=== PATIENT | female | born 1985 | race Caucasian/White ===

== ENCOUNTER 2020-04-19 20:30 | Inpatient (IN) | payer BC ==
[2020-04-19] MEDS ORDERED: DEXTROSE 5%-LACTATED RINGERS 1,000 ML IV SCH (21:00)
[2020-04-19 22:13] VITALS: BMI 35.3
[2020-04-19] MEDS ORDERED: AMPICILLIN SODIUM 2 GM VIAL IVPB ONE (22:15)
[2020-04-19] MEDS ORDERED: AMPICILLIN SODIUM 2 GM VIAL ONE (22:18)
[2020-04-19 23:01] LABS: BASO % 0.2 % (0-2.0); EOS % 0.5 % (0-4.5); HEMATOCRIT 39.9 % (32.4-45.2); LYMPH % 18.8 % (8-40); MCH 33.4 pg (25.7-33.7); MCHC 35.2 g/dl (32.0-36.0); MEAN CELL VOLUME 95.1 fl (80-96); MEAN PLT VOLUME 6.5 fl (7.5-11.1); MONO % 4.2 % (3.8-10.2); NEUT % 76.3 % (42.8-82.8); PLATELET COUNT 207 K/MM3 (134-434); RBC 4.19 M/mm3 (3.60-5.2); RDW 12.6 % (11.6-15.6); WHITE BLOOD COUNT 11.4 K/mm3 (4.0-10.0)
--- NOTE | 2020-04-19 23:01 | PD.OB.PROG ---
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 Cardio/Vascular: Denies/None Pulmonary: Denies/None Gastrointestinal: Denies/None Hepatobiliary: Denies/None Renal/: Denies/None ...: 2 ...Para: 1 ...Term: 1 ...: 0 ...Spon : 0 ...Induced : 0 ...Living Children: 1 ...Multiple Gestation: 0 ...EDC by Sono: 04/17/20 Heme/Onc: Denies/None Infectious Disease: Denies/None Psych: Denies/None Musculoskeletal: Denies/None Rheumatology: Denies/None ENT: Denies/None Endocrine: Denies/None Dermatology: Denies/None - Past Surgical History Past Surgical History: No: None, AAA Repair, AICD, Amputation, Appendectomy, Arthrosocopy, AV Fistula/Graft, Bariatric Surgery, Breast Biopsy, Bypass, CABG, Carotid Endarterectomy, Cataract Removal, Cholecystectomy, Colectomy, Colonoscopy, Colostomy, Craniotomy, , Cystectomy, Hernia Repair, Hysterectomy, Ileal Conduit, Ileosotomy, Joint Replacement, Kidney Transplant, Laminectomy, Liver Transplant, Mastectomy, Nephrectomy, Oopherectomy, Orchiectomy, Permanent Pacemaker, Prostatectomy, Splenectomy, Stent, Thoracotomy, TURP, Tonsillectomy, Tubal Ligation, Upper Endoscopy, Valve Replacement, Vasectomy, Vein Stripping/Ligation - Advance Directives Advance Directives: Yes: Living Will - Smoking History Smoking history: Never smoked Have you smoked in the past 12 months: No - Alcohol/Substance Use Hx Alcohol Use: No History of Substance Use: reports: None - Social History Usual Living Arrangement: With Significant Other Do you think of yourself as: Straight/Heterosexual ADL: Independent History of Recent Travel: No Review of Systems - Review of Systems Constitutional: reports: No Symptoms Eyes: reports: No Symptoms HENT: reports: No Symptoms Neck: reports: No Symptoms Cardiovascular: reports: No Symptoms Respiratory: reports: No Symptoms Gastrointestinal: reports: No Symptoms Genitourinary: reports: No Symptoms Breasts: reports: No Symptoms Reported Musculoskeletal: reports: No Symptoms Integumentary: reports: No Symptoms Neurological: reports: No Symptoms Endocrine: reports: No Symptoms Hematology/Lymphatic: reports: No Symptoms Psychiatric: reports: No Symptoms Physical Exam - Obstetrical Vital Signs: Vital Signs Temperature 98.2 F 04/19/20 20:30 Pulse Rate 81 04/19/20 20:30 Respiratory Rate 20 04/19/20 20:30 Blood Pressure 117/71 04/19/20 20:30 O2 Sat by Pulse Oximetry (%) Constitutional: Yes: Well Nourished, No Distress, Calm Eyes: Yes: WNL, Conjunctiva Clear, EOM Intact HENT: Yes: WNL, Atraumatic, Normocephalic Neck: Yes: WNL, Supple, Trachea Midline Cardiovascular: Yes: WNL, Regular Rate and Rhythm Lungs: Clear to auscultation Breast(s): Yes: WNL - Abdominal Exam/OB Number of Fetuses: Single Presentation: Vertex Contractions: Yes Regularity: Regular Intensity: Moderate Monitor Mode: External Heart Rate (range): 150 Heart Rate Location: [facility] Category: I Accelerations: Uniform Decelerations: None - Vaginal Exam/OB Vaginal Exam Deferred: No Vaginal Bleeding: No Speculum Exam: No Dilatation (cm): 4 Effacement (%): 80 Amniotic Membrane Status: Intact Presentation: Vertex/Position Station: -1 - Physical Exam Musculoskeletal: Yes: WNL Extremities: Yes: WNL Integumentary: Yes: WNL ...Motor Strength: WNL Psychiatric: Yes: WNL, Alert, Oriented Assessment/Plan in labor, will admit,
[2020-04-19 23:13] LABS: INR 0.86 (0.83-1.09); PROTHROMBIN TIME (PATIENT) 10.1 SEC (9.7-13.0)
[2020-04-19] MEDS: OXYTOCIN 20 UNITS in 0.9% NS 20 UNIT/1,000 ML INFUS.BAG IV SCH (23:15)
[2020-04-19 23:16] LABS: ACTIVATED PTT 28.2 SECONDS (25.2-36.5)
[2020-04-19] MEDS ORDERED: OXYTOCIN 20 UNITS in 0.9% NS 20 UNIT/1,000 ML INFUS.BAG IV ONE (23:17)
[2020-04-19 23:25] LABS: BLOOD UREA NITROGEN 8.4 mg/dL (7-18); CALCIUM 9.2 mg/dL (8.5-10.1); CREATININE 0.5 mg/dL (0.55-1.3); POTASSIUM 3.5 mmol/L (3.5-5.1)
[2020-04-19] MEDS ORDERED: WITCH HAZEL 50% (TUCKS) 40 PAD/JAR PAD TP PRN (23:29)
[2020-04-19] MEDS ORDERED: BENZOCAINE 28 GM HEMORRHOIDAL OINTMENT TP PRN (23:29)
[2020-04-19] MEDS ORDERED: BISACODYL 10 MG SUPP.RECT RC PRN (23:29)
[2020-04-19] MEDS ORDERED: IBUPROFEN 600 MG TABLET (FP) PO PRN (23:29)
[2020-04-19] MEDS ORDERED: BENZOCAINE 20% 57 GM BOTTLE TP PRN (23:29)
[2020-04-19] MEDS ORDERED: METHYLERGONOVINE MALEATE 0.2 MG/1 ML AMP IM PRN (23:29)
[2020-04-19] MEDS ORDERED: ACETAMINOPHEN 325 MG TABLET (FP) PO PRN (23:29)
--- NOTE | 2020-04-19 23:37 | HP ---
Past Medical History - Primary Care Physician PCP:: charley - Admission Chief Complaint: 40 weeks, labor History of Present Illness: 34 yo f 40 weeks in labor, no bleeding, no rom , cx 8 cm 100 vx -1 mi, fhr cat 1, regular contraction History Source: Patient Limitations to Obtaining History: No Limitations - Past Medical History ...: 2 ...Para: 1 ...Term: 1 ...: 0 ...Spon : 0 ...Induced : 0 ...Living Children: 1 ...Multiple Gestation: 0 ...EDC by Nick: 04/17/20 - Past Surgical History Past Surgical History: No: None, AAA Repair, AICD, Amputation, Appendectomy, Arthrosocopy, AV Fistula/Graft, Bariatric Surgery, Breast Biopsy, Bypass, CABG, Carotid Endarterectomy, Cataract Removal, Cholecystectomy, Colectomy, Colonoscopy, Colostomy, Craniotomy, , Cystectomy, Hernia Repair, Hysterectomy, Ileal Conduit, Ileosotomy, Joint Replacement, Kidney Transplant, Laminectomy, Liver Transplant, Mastectomy, Nephrectomy, Oopherectomy, Orchiectomy, Permanent Pacemaker, Prostatectomy, Splenectomy, Stent, Thoracotomy, TURP, Tonsillectomy, Tubal Ligation, Upper Endoscopy, Valve Replacement, Vasectomy, Vein Stripping/Ligation Hx Myomectomy: No Hx Transabdominal Cerclage: No - Advance Directives Advance Directives: Yes: Living Will - Smoking History Smoking history: Never smoked Have you smoked in the past 12 months: No - Alcohol/Substance Use Hx Alcohol Use: No History of Substance Use: reports: None - Social History Usual Living Arrangement: Yes: With Spouse ADL: Independent History of Recent Travel: No Home Medications - Allergies Allergies/Adverse Reactions: Allergies Allergy/AdvReac Type Severity Reaction Status Date / Time No Known Allergies Allergy Verified 10/21/19 09:23 - Home Medications Home Medications: Ambulatory Orders Oseltamivir Phosphate [Tamiflu] 75 mg PO BID #10 capsule 10/21/19 Review of Systems - Review of Systems Constitutional: reports: No Symptoms Eyes: reports: No Symptoms HENT: reports: No Symptoms Neck: reports: No Symptoms Cardiovascular: reports: No Symptoms Respiratory: reports: No Symptoms Gastrointestinal: reports: No Symptoms Genitourinary: reports: No Symptoms Breasts: reports: No Symptoms Reported Musculoskeletal: reports: No Symptoms Integumentary: reports: No Symptoms Neurological: reports: No Symptoms Endocrine: reports: No Symptoms Hematology/Lymphatic: reports: No Symptoms Psychiatric: reports: No Symptoms Physical Exam - Maternity Vital Signs: Vital Signs Temperature 98.2 F 04/19/20 20:30 Pulse Rate 81 04/19/20 20:30 Respiratory Rate 04/19/20 20:30 Blood Pressure 117/71 04/19/20 20:30 O2 Sat by Pulse Oximetry (%) Constitutional: Yes: Well Nourished, No Distress, Calm Eyes: Yes: WNL, Conjunctiva Clear, EOM Intact HENT: Yes: WNL, Atraumatic, Normocephalic Neck: Yes: WNL, Supple, Trachea Midline Cardiovascular: Yes: WNL, Regular Rate and Rhythm Breast(s): Yes: WNL - Abdominal Exam/OB Fundal Height: 38 Number of Fetuses: Single Presentation: Vertex Contractions: Yes Regularity: Regular Intensity: Mod/Strong Monitor Mode: External Heart Rate Location: [facility] Category: I Accelerations: Non-Uniform - Vaginal Exam/OB Vaginal Bleeding: No Speculum Exam: No Dilatation (cm): 8 Effacement (%): 80 Amniotic Membrane Status: Intact Presentation: Vertex/Position Station: -1 - Physical Exam Musculoskeletal: Yes: WNL Extremities: Yes: WNL Edema: LLE: Trace, RLE: Trace Deep Tendon Reflex Grade: Normal +2 ...Motor Strength: WNL Psychiatric: Yes: WNL - Labs Lab Results: CBC, BMP 04/19/20 22:30 04/19/20 22:30 Hemorrhage Risk Assessment - Risk Factors Medium Risk Factors: Yes: None High Risk Factors: Yes: None Risk Score: 1 Risk Level: Medium Risk Problem List - Problems (1) 40 weeks gestation of Code(s): Z3A.40 - 40 WEEKS GESTATION OF (2) Labor established Code(s): OGI9398 - Assessment/Plan admit for vaginal delivery fh pain management
--- NOTE | 2020-04-19 23:39 | PN ---
Delivery - Delivery Vaginal Delivery: Spontaneous Type of Anesthesia: None Episiotomy/Laceration: None (cx full head delivered NATANAEL, no cord, ant,and post.shoulder with no difficulty, live baby girl 9/9,placenta complete, no laceration ,ebl 300cc , no complication, baby bonded with mom) Delivery, Single - Feeding Plan Initial Plan: Elected not to breastfeed exclusively throughout hospitalization
[2020-04-20 00:39] LABS: CORD BASE EXCESS -2.9 mmol/L (0-2); CORD HCO3 25.5 mmHg (20-29); CORD PCO2 60.5 mmHg (30-78); CORD pH 7.243 (7.14-7.44)
[2020-04-20 00:44] LABS: CORD BASE EXCESS -2.2 mmol/L (0-2); CORD HCO3 23.3 mmHg (20-29); CORD PCO2 42.5 mmHg (30-78); CORD pH 7.357 (7.14-7.44)
[2020-04-20] MEDS ORDERED: AMPICILLIN SODIUM 1 GM VIAL IVPB SCH (02:15)
[2020-04-20] MEDS: OXYTOCIN 20 UNITS in 0.9% NS 20 UNIT/1,000 ML INFUS.BAG IV SCH (02:30)
[2020-04-20] MEDS ORDERED: OXYTOCIN 20 UNITS in 0.9% NS 20 UNIT/1,000 ML INFUS.BAG IV ONE (02:34)
[2020-04-20] MEDS: FERROUS SO4 325 MG TABLET (FP) PO SCH ×2 (08:40→16:50)
[2020-04-20 08:43] LABS: BASO % 0.2 % (0-2.0); EOS % 0.2 % (0-4.5); HEMATOCRIT 38.5 % (32.4-45.2); HEMOGLOBIN 13.5 GM/dL (10.7-15.3); LYMPH % 12.8 % (8-40); MCH 33.6 pg (25.7-33.7); MCHC 35.1 g/dl (32.0-36.0); MEAN CELL VOLUME 95.6 fl (80-96); MEAN PLT VOLUME 6.6 fl (7.5-11.1); MONO % 4.8 % (3.8-10.2); PLATELET COUNT 191 K/MM3 (134-434); RBC 4.03 M/mm3 (3.60-5.2); RDW 12.5 % (11.6-15.6); WHITE BLOOD COUNT 15.5 K/mm3 (4.0-10.0)
--- NOTE | 2020-04-20 09:24 | PN ---
Progress Note (short form) - Note Progress Note: ppd 1 s/p , no c/o, voids ok , no excess vaginal bleeding CBC, BMP 04/20/20 08:15 04/19/20 22:30 Last Vital Signs Temp Pulse Resp BP Pulse Ox 98.4 F 91 H 18 114/72 98 04/20/20 09:04 04/20/20 09:04 04/20/20 09:04 04/20/20 09:04 04/20/20 09:04 abdomen soft, no distension , no cva uterus firm, non tender lochia mild, no calf tenderness plan ambulate plan for d/c home in am Problem List - Problems (1) 40 weeks gestation of Code(s): Z3A.40 - 40 WEEKS GESTATION OF (2) Labor established Code(s): JDB5638 -
[2020-04-20] MEDS: PRENATAL VITAMINS W/ FOLIC ACID TABLET (FP) PO SCH (09:55)
[2020-04-20] MEDS ORDERED: SENNOSIDES/DOCUSATE COMBO (SENNA PLUS) TABLET (UD) PO PRN (22:00)
--- NOTE | 2020-04-21 06:37 | DS ---
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 Vital Signs: Vital Signs Temperature 97.8 F 04/20/20 21:00 Pulse Rate 81 04/20/20 21:00 Respiratory Rate 18 04/20/20 21:00 Blood Pressure 106/59 L 04/20/20 21:00 O2 Sat by Pulse Oximetry (%) 99 04/20/20 21:00 Constitutional: Yes: Well Nourished, No Distress, Calm Eyes: Yes: WNL, Conjunctiva Clear, EOM Intact HENT: Yes: WNL, Atraumatic, Normocephalic Neck: Yes: WNL, Supple, Trachea Midline Cardiovascular: Yes: WNL, Regular Rate and Rhythm Respiratory: Yes: WNL, Regular, CTA Bilaterally Gastrointestinal: Yes: WNL ...Rectal Exam: Yes: WNL Renal/: Yes: WNL ....Post : Yes: Uterus firm, Uterus non-tender, Slight lochia rubra Breast(s): Yes: WNL Musculoskeletal: Yes: WNL Extremities: Yes: WNL Edema: No Integumentary: Yes: WNL Neurological: Yes: WNL, Alert, Oriented ...Motor Strength: WNL Psychiatric: Yes: WNL, Alert, Oriented Labs: CBC, BMP 04/20/20 08:15 04/19/20 22:30 Delivery - Delivery Vaginal Delivery: Spontaneous Type of Anesthesia: None Episiotomy/Laceration: None EBL (cc): 400 Delivery, Single - Stages of Labor Date 1st Stage Initiatied: 04/19/20 Time 1st Stage Initiated: 20:00 Date 2nd Stage Initiated: 04/19/20 Time 2nd Stage Initiated: 23:10 Date of Delivery: 04/19/20 Time of Delivery: 23:13 Time Placenta Delivered: 23:15 Placenta: Yes: Spontaneous - Condition of Infant 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 Present: No Infant Gender: Female Weight: 7 lb 11 oz Position: Left, OA Total Hours ROM (Hrs/Mins): 15min - 1 Minute Total Score: 9 5 Minutes Total Score: 9 - Feeding Plan Initial Plan: Elected not to breastfeed exclusively throughout hospitalization Discharge Summary Problems reviewed: Yes Reason For Visit: LABOR Current Active Problems 40 weeks gestation of (Acute) Labor established (Acute) Procedures: Principal: Hospital Course: no complication Plan of Treatment: follow up [facility] care 4 weeks Condition: Good - Instructions Diet, Activity, Other Instructions: reguar diet, no intercourse, follow upp [facility] care 4 weeks, if fever, heavy vaginal bleeding call md Referrals: Andrews Hardy MD [Staff Physician] - Disposition: HOME - Home Medications Comprehensive Discharge Medication List: Ambulatory Orders Vitamins (Sjr) - 1 tab PO DAILY 04/20/20 Ibuprofen [Motrin -] 600 mg PO TID #21 tablet 04/21/20
[2020-04-21] MEDS: FERROUS SO4 325 MG TABLET (FP) PO SCH (08:18)
[2020-04-21] MEDS ORDERED: DIPHTH,PERTUSS(ACELL),TET 0.5 ML DISP.SYRIN IM ONE (10:00)
[2020-04-21] MEDS: PRENATAL VITAMINS W/ FOLIC ACID TABLET (FP) PO SCH (10:53)
[2020-04-21 12:21] VITALS: BP 109/63; PULSE 77; TEMP 97.9
== END 2020-04-21 12:55 | disposition home or self-care (01) | DRG 807 ==
LOC: JLDR 20:30 → J3W 04-20 02:41
PROVIDERS: ADMIT Obstetrics & Gynecology; ATTEND Obstetrics & Gynecology
PROC: 10E0XZZ Delivery of Products of Conception, External Approach (ICD-10-PCS; principal; 2020-04-19)
DX: O48.0 Post-term pregnancy (principal); Z37.0 Single live birth; Z3A.40 40 weeks gestation of pregnancy
CPT/HCPCS: 36415; 36600; 59409; 80048; 82803; 85025; 85610; 85730; 86780; 86850; 86900; 86901; 87389; 90715

== ENCOUNTER 2022-02-10 15:34 | Emergency (ER) | payer BC ==
[2022-02-10 15:58] VITALS: BMI 36.2
[2022-02-10 18:45] VITALS: BP 120/77; PULSE 98; TEMP 98.3
== END 2022-02-10 19:35 | disposition home or self-care (01) ==
LOC: JER 15:34
DX: O99.353 Diseases of the nervous system complicating pregnancy, third trimester (principal); G51.0 Bell's palsy; Z3A.36 36 weeks gestation of pregnancy
CPT/HCPCS: 99283-25

== ENCOUNTER 2022-02-19 14:50 | Inpatient (IN) | payer BC ==
[2022-02-19] MEDS ORDERED: DINOPROSTONE 10 MG VAGINAL SUPPOSITORY VG ONE (16:20)
[2022-02-19 16:44] VITALS: BMI 34.7
[2022-02-19 16:54] LABS: BASO % 0.1 % (0-2.0); EOS % 0.5 % (0-4.5); HEMATOCRIT 37.8 % (32.4-45.2); HEMOGLOBIN 13.3 GM/dL (10.7-15.3); LYMPH % 16.6 % (8-40); MCH 33.3 pg (25.7-33.7); MCHC 35.1 g/dl (32.0-36.0); MEAN CELL VOLUME 94.8 fl (80-96); MEAN PLT VOLUME 6.2 fl (7.5-11.1); NEUT % 78.8 % (42.8-82.8); PLATELET COUNT 263 10^3/uL (134-434); RBC 3.99 M/mm3 (3.60-5.2); RDW 13.5 % (11.6-15.6); WHITE BLOOD COUNT 10.7 K/mm3 (4.0-10.0)
[2022-02-19] MEDS ORDERED: ELECTROLYTE-148 SOLN 1,000 ML IV SCH (17:00)
[2022-02-19 17:08] LABS: INR 0.92 (0.83-1.09); PROTHROMBIN TIME (PATIENT) 10.6 SEC (9.7-13.0)
[2022-02-19 17:11] LABS: ACTIVATED PTT 26.6 SECONDS (25.2-36.5)
[2022-02-19 17:24] LABS: CREATININE 0.4 mg/dL (0.55-1.3)
[2022-02-19] MEDS ORDERED: BUTORPHANOL TARTRATE 1 MG/ML VIAL IVPUSH ONE (20:28)
[2022-02-19] MEDS ORDERED: PROMETHAZINE HCL 25 MG/1 ML VIAL IVPB PRN (20:29)
[2022-02-19] MEDS ORDERED: DEXTROSE 5%-LACTATED RINGERS 1,000 ML IV SCH (20:45)
[2022-02-20] MEDS ORDERED: OXYTOCIN 30 UNITS in 0.9% NS 30 UNIT/500 ML INFUS.BAG IVPB SCH (01:05)
[2022-02-20] MEDS ORDERED: OXYTOCIN 30 UNITS in 0.9% NS 30 UNIT/500 ML INFUS.BAG IVPB ONE (01:14)
[2022-02-20] MEDS: predniSONE 10 MG TABLET (UD) PO SCH (10:15)
[2022-02-20] MEDS ORDERED: BUTORPHANOL TARTRATE 2 MG/ML VIAL ONE (17:31)
[2022-02-20] MEDS ORDERED: PROMETHAZINE HCL 25 MG/1 ML VIAL ONE (17:31)
[2022-02-20] MEDS ORDERED: LIDOCAINE HCL 1% PRESERVATIVE FREE - 30ML VIAL ONE (19:18)
[2022-02-20] MEDS ORDERED: OXYTOCIN 20 UNITS in 0.9% NS 20 UNIT/1,000 ML INFUS.BAG IV ONE (19:18)
[2022-02-20] MEDS ORDERED: BENZOCAINE 20% 57 GM BOTTLE TP PRN (20:49)
[2022-02-20] MEDS ORDERED: ACETAMINOPHEN 325 MG TABLET (FP) PO PRN (20:49)
[2022-02-20] MEDS ORDERED: METHYLERGONOVINE MALEATE 0.2 MG/1 ML AMP IM PRN (20:49)
[2022-02-20] MEDS ORDERED: WITCH HAZEL 50% (TUCKS) 40 PAD/JAR PAD TP PRN (20:49)
[2022-02-20] MEDS ORDERED: oxyCODONE HCL 5 MG TABLET PO PRN (20:49)
[2022-02-20] MEDS ORDERED: BISACODYL 10 MG SUPP.RECT RC PRN (20:49)
[2022-02-20] MEDS ORDERED: BENZOCAINE 28 GM HEMORRHOIDAL OINTMENT TP PRN (20:49)
[2022-02-20] MEDS ORDERED: OXYTOCIN 20 UNITS in 0.9% NS 20 UNIT/1,000 ML INFUS.BAG IV SCH (21:00)
[2022-02-20 21:14] LABS: CORD HCO3 24.9 mmHg (20-29); CORD PCO2 41.3 mmHg (30-78); CORD pH 7.398 (7.14-7.44)
[2022-02-20 21:15] LABS: CORD BASE EXCESS -0.8 mmol/L (0-2); CORD HCO3 24.2 mmHg (20-29); CORD pH 7.388 (7.14-7.44)
[2022-02-20] MEDS ORDERED: IBUPROFEN 600 MG TABLET (FP) PO ONE (22:09)
[2022-02-20] MEDS: IBUPROFEN 600 MG TABLET (FP) PO PRN (22:10)
[2022-02-21] MEDS: IBUPROFEN 600 MG TABLET (FP) PO PRN (08:32)
[2022-02-21 08:34] LABS: BASO % 0.2 % (0-2.0); EOS % 0.5 % (0-4.5); HEMATOCRIT 40.6 % (32.4-45.2); HEMOGLOBIN 13.9 GM/dL (10.7-15.3); LYMPH % 15.6 % (8-40); MCH 32.9 pg (25.7-33.7); MCHC 34.1 g/dl (32.0-36.0); MEAN CELL VOLUME 96.5 fl (80-96); MEAN PLT VOLUME 6.3 fl (7.5-11.1); MONO % 4.6 % (3.8-10.2); NEUT % 79.1 % (42.8-82.8); PLATELET COUNT 202 10^3/uL (134-434); RBC 4.21 M/mm3 (3.60-5.2); RDW 13.9 % (11.6-15.6); WHITE BLOOD COUNT 13.1 K/mm3 (4.0-10.0)
[2022-02-21] MEDS: predniSONE 10 MG TABLET (UD) PO SCH (12:14)
[2022-02-21] MEDS ORDERED: SENNOSIDES/DOCUSATE COMBO (SENNA PLUS) TABLET (UD) PO PRN (22:00)
[2022-02-22] MEDS: IBUPROFEN 600 MG TABLET (FP) PO PRN (04:34)
[2022-02-22] MEDS: predniSONE 10 MG TABLET (UD) PO SCH (11:26)
[2022-02-22 14:17] VITALS: BP 112/73; PULSE 67; TEMP 97.7
== END 2022-02-22 13:35 | disposition home or self-care (01) | DRG 807 ==
LOC: JDEL 14:50 → JLDR 15:30 → J3W 02-20 22:55
PROVIDERS: ADMIT Obstetrics & Gynecology; ATTEND Obstetrics & Gynecology
PROC: 3E0P7VZ Introduction of Hormone into Female Reproductive, Via Natural or Artificial Opening (ICD-10-PCS; 2022-02-19)
PROC: 10E0XZZ Delivery of Products of Conception, External Approach (ICD-10-PCS; principal; 2022-02-20)
DX: O41.03X0 Oligohydramnios, third trimester, not applicable or unspecified (principal); Z37.0 Single live birth; O69.81X0 Labor and delivery complicated by cord around neck, without compression, not applicable or unspecified; Z3A.37 37 weeks gestation of pregnancy
CPT/HCPCS: 36415; 36600; 59409; 80048; 82803; 85025; 85610; 85730; 86780; 86850; 86900; 86901; C9803-CS; U0003; U0005